=== PATIENT | male | born 1975 | race Caucasian/White ===

== ENCOUNTER 2017-03-19 00:37 | Emergency (ER) | payer OTHER ==
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
--- NOTE | 2017-03-19 02:04 | ED ORDER SUMMARY ---
..... Patient: NICOLLE DIXON OrderSheet [facility] VisitID: [id number] [address] [place] [address] 42y, M Registration Date/Time: 03/19/2017 ORDER SHEET Weight: 72.5 kg (stated) Allergies: No Known Drug Allergy GENERAL ORDERS: CBC w Diff Urgent (00:51 03/19/2017 Ozzy Griffin) (Ack 0:53 AMcQuoid ER Tech1) (0:55 KPage-Kuchan R.N.) CMP Urgent (00:51 03/19/2017 Ozzy Griffin) (Ack 0:53 AMcQuoid ER Tech1) (0:55 KPage-Kuchan R.N.) Irrigate Wounds (00:51 03/19/2017 Ozzy Griffin) (Ack 0:53 AMcQuoid ER Tech1) (0:55 KPage-Kuchan R.N.) - (02:05 03/19/2017 Ozzy Griffin) (2:55 CBradburn R.N.) MEDICATION ORDERS: - (xeroform gauze and wrap/cover) (02:04 03/19/2017 Ozzy Griffin) (2:55 CBradburn R.N.) IV FLUIDS: Dilaudid IV 1 mg (HIGH ALERT MEDICATION, NOW) (00:43 03/19/2017 KPage-Hubern R.N. verbal order read back to Ozzy Griffin) (0:44 KPage-Kuchan R.N.) IV NS : initial bolus 1000 mL (1000 mL/hr), then 1000 mL/hr for X1 (NOW) (00:44 03/19/2017 KPage-Kuelizabethn R.N. verbal order read back to Ozzy Griffin) (0:45 KPage-Kuchan R.N.) Dilaudid IV 2 mg (HIGH ALERT MEDICATION, NOW) (00:54 03/19/2017 KPage-Kuchan R.N. verbal order read back to Ozzy Griffin) (0:54 KPage-Hubern R.N.) IV Lactated Ringers : initial bolus none -, then 225 mL/hr for 8 hr (NOW) (00:55 03/19/2017 Ozzy Griffin) (2:57 Ronald Subramanian) IV Lactated Ringers : initial bolus none -, then 305 mL/hr for 8 hr (NOW) (00:55 03/19/2017 Ozzy Griffin) (1:10 Ronald Subramanian) Dilaudid IV 2 mg (HIGH ALERT MEDICATION, NOW) (01:01 03/19/2017 Brenda Subramanian verbal order read back to Ozzy Griffin) (1:02 Brenda Subramanian) Ativan IV 2 mg (HIGH ALERT MEDICATION, NOW) (01:10 03/19/2017 Ozzy Griffin) (1:11 Ronald Subramanian) ORDER SHEET NOTES: [Electronically signed by Vika Mcmahan R.N. (03:07 03/19/2017)] [Electronically signed by Dusty Alejo Dr. (08:19 03/19/2017)] [Electronically locked/signed by Vika Mcmahan R.N. (03:07 03/19/2017)]
--- NOTE | 2017-03-19 02:04 | ED ORDER SUMMARY ---
..... Patient: NICOLLE DIXON OrderSheet [facility] VisitID: [id number] [address] [place] [address] 42y, M Registration Date/Time: 03/19/2017 ORDER SHEET Weight: 72.5 kg (stated) Allergies: No Known Drug Allergy GENERAL ORDERS: CBC w Diff Urgent (00:51 03/19/2017 Ozzy Griffin) (Ack 0:53 AMcQuoid ER Tech1) (0:55 KPage-Kuchan R.N.) CMP Urgent (00:51 03/19/2017 Ozzy Griffin) (Ack 0:53 AMcQuoid ER Tech1) (0:55 KPage-Kuchan R.N.) Irrigate Wounds (00:51 03/19/2017 Ozzy Griffin) (Ack 0:53 AMcQuoid ER Tech1) (0:55 KPage-Kuchan R.N.) - (02:05 03/19/2017 Ozzy Griffin) (2:55 CBradburn R.N.) MEDICATION ORDERS: - (xeroform gauze and wrap/cover) (02:04 03/19/2017 Ozzy Griffin) (2:55 CBradburn R.N.) IV FLUIDS: Dilaudid IV 1 mg (HIGH ALERT MEDICATION, NOW) (00:43 03/19/2017 KPage-Hubern R.N. verbal order read back to Ozzy Griffin) (0:44 KPage-Kuchan R.N.) IV NS : initial bolus 1000 mL (1000 mL/hr), then 1000 mL/hr for X1 (NOW) (00:44 03/19/2017 KPage-Kuelizabethn R.N. verbal order read back to Ozzy Griffin) (0:45 KPage-Kuchan R.N.) Dilaudid IV 2 mg (HIGH ALERT MEDICATION, NOW) (00:54 03/19/2017 KPage-Kuchan R.N. verbal order read back to Ozzy Griffin) (0:54 KPage-Hubern R.N.) IV Lactated Ringers : initial bolus none -, then 225 mL/hr for 8 hr (NOW) (00:55 03/19/2017 Ozzy Griffin) (2:57 Ronald Subramanian) IV Lactated Ringers : initial bolus none -, then 305 mL/hr for 8 hr (NOW) (00:55 03/19/2017 Ozzy Griffin) (1:10 Ronald Subramanian) Dilaudid IV 2 mg (HIGH ALERT MEDICATION, NOW) (01:01 03/19/2017 Brenda Subramanian verbal order read back to Ozzy Griffin) (1:02 Brenda Subramanian) Ativan IV 2 mg (HIGH ALERT MEDICATION, NOW) (01:10 03/19/2017 Ozzy Griffin) (1:11 Ronald Subramanian) ORDER SHEET NOTES: [Electronically signed by Vika Mcmahan R.N. (03:07 03/19/2017)] [Electronically signed by Dusty Alejo Dr. (08:19 03/19/2017)] [Electronically locked/signed by Vika Mcmahan R.N. (03:07 03/19/2017)]
--- NOTE | 2017-03-19 08:19 | ED MAR SUMMARY ---
..... Medication Administration Record [facility] [address] [place] [address] Patient: NICOLLE DIXON Visit ID: [id number] 42y, M Weight: 72.5 kg Height/Length: 70 in BMI: 22.9 ALLERGIES: No Known Drug Allergy Given 00:39 03/19/2017 Asif Rodriguez R.N. Medication Administered: DILAUDID [IVP] (HYDROMORPHONE HCL PF), Dose: 1 mg IVP, Site: #1 right forearm. Medication Ordered: Dilaudid IV 1 mg (HIGH ALERT MEDICATION, NOW). Start 00:39 03/19/2017 Asif Rodriguez R.N., Stop 01:10 03/19/2017 Vika Mcmahan R.N. Medication Administered: IV NS (SALINE), Dose: IV Fluids, Rate: 1000 mL/hr, Dispensed: 1000 mL bag, Site: #1 right forearm. Medication Ordered: IV NS : initial bolus 1000 mL (1000 mL/hr), then 1000 mL/hr for X1 (NOW). Given 00:49 03/19/2017 Asif Rodriguez R.N. Medication Administered: DILAUDID [IVP] (HYDROMORPHONE HCL PF), Dose: 2 mg IVP, Site: #1 right forearm. Medication Ordered: Dilaudid IV 2 mg (HIGH ALERT MEDICATION, NOW). Given 01:02 03/19/2017 Asif Rodriguez R.N. Medication Administered: DILAUDID [IVP] (HYDROMORPHONE HCL PF), Dose: 2 mg IVP, Site: #1 right forearm. Medication Ordered: Dilaudid IV 2 mg (HIGH ALERT MEDICATION, NOW). Start 01:10 03/19/2017 Vika Mcmahan R.N., Continued Upon Transfer 02:55 03/19/2017 Vika Mcmahan R.N. Medication Administered: IV LACTATED RINGERS, Dose: IV Fluids over 8 hour(s), Rate: 305 mL/hr, Dispensed: 1000 mL bag, Site: #1 right forearm. Medication Ordered: IV Lactated Ringers : initial bolus none -, then 305 mL/hr for 8 hr (NOW). Given 01:11 03/19/2017 Vika Mcmahan R.N. Medication Administered: ATIVAN [IVP] (LORAZEPAM), Dose: 2 mg IVP over 2 minute(s), Site: #1 right forearm. Medication Ordered: Ativan IV 2 mg (HIGH ALERT MEDICATION, NOW). Given 02:45 03/19/2017 Vika Mcmahan R.N. Medication Administered: xeroform *, Dose: multiple * Topical. Medication Ordered: - (xeroform gauze and wrap/cover). Start 02:45 03/19/2017 Vika Mcmahan R.N., Continued Upon Transfer 02:55 03/19/2017 Vika Mcmahan R.N. Medication Administered: IV LACTATED RINGERS, Dose: IV Fluids over 8 hour(s), Rate: 225 mL/hr, Dispensed: 1000 mL bag, Site: #1 right forearm. Medication Ordered: IV Lactated Ringers : initial bolus none -, then 225 mL/hr for 8 hr (NOW).
--- NOTE | 2017-03-19 08:19 | ED MED RECONCILIATION SUMMARY ---
Patient: NICOLLE DIXON Medication Reconciliation Report [facility] VisitID: [id number] [address] [place] [address] 42y, M Registration Date/Time: 03/19/2017 Weight: 72.5 kg Height/Length: 70 in. BMI: 22.9 ALLERGIES: No Known Drug Allergy The patient's Home Medications are listed below: NONE. The source(s) of the original Home Medication information: patient The following Medications were given to the patient in the Emergency Department: Dilaudid [IVP] IVP 1 mg, administered: 03/19/2017 12:39:00 AM IV NS IV Fluids bolus 0, then 1000 mL/hr, administered: 03/19/2017 12:39:00 AM Dilaudid [IVP] IVP 2 mg, administered: 03/19/2017 12:49:00 AM Dilaudid [IVP] IVP 2 mg, administered: 03/19/2017 1:02:00 AM IV LACTATED RINGERS IV Fluids bolus 0, then 305 mL/hr, administered: 03/19/2017 1:10:00 AM Ativan [IVP] IVP 2 mg, administered: 03/19/2017 1:11:00 AM xeroform Topical multiple, administered: 03/19/2017 2:45:00 AM IV LACTATED RINGERS IV Fluids bolus 0, then 225 mL/hr, administered: 03/19/2017 2:45:00 AM The following Medications were prescribed to the patient: None.
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
--- NOTE | 2017-03-19 08:19 | ED MAR SUMMARY ---
..... Medication Administration Record [facility] [address] [place] [address] Patient: NICOLLE DIXON Visit ID: [id number] 42y, M Weight: 72.5 kg Height/Length: 70 in BMI: 22.9 ALLERGIES: No Known Drug Allergy Given 00:39 03/19/2017 Asif Rodriguez R.N. Medication Administered: DILAUDID [IVP] (HYDROMORPHONE HCL PF), Dose: 1 mg IVP, Site: #1 right forearm. Medication Ordered: Dilaudid IV 1 mg (HIGH ALERT MEDICATION, NOW). Start 00:39 03/19/2017 Asif Rodriguez R.N., Stop 01:10 03/19/2017 Vika Mcmahan R.N. Medication Administered: IV NS (SALINE), Dose: IV Fluids, Rate: 1000 mL/hr, Dispensed: 1000 mL bag, Site: #1 right forearm. Medication Ordered: IV NS : initial bolus 1000 mL (1000 mL/hr), then 1000 mL/hr for X1 (NOW). Given 00:49 03/19/2017 Asif Rodriguez R.N. Medication Administered: DILAUDID [IVP] (HYDROMORPHONE HCL PF), Dose: 2 mg IVP, Site: #1 right forearm. Medication Ordered: Dilaudid IV 2 mg (HIGH ALERT MEDICATION, NOW). Given 01:02 03/19/2017 Asif Rodriguez R.N. Medication Administered: DILAUDID [IVP] (HYDROMORPHONE HCL PF), Dose: 2 mg IVP, Site: #1 right forearm. Medication Ordered: Dilaudid IV 2 mg (HIGH ALERT MEDICATION, NOW). Start 01:10 03/19/2017 Vika Mcmahan R.N., Continued Upon Transfer 02:55 03/19/2017 Vika Mcmahan R.N. Medication Administered: IV LACTATED RINGERS, Dose: IV Fluids over 8 hour(s), Rate: 305 mL/hr, Dispensed: 1000 mL bag, Site: #1 right forearm. Medication Ordered: IV Lactated Ringers : initial bolus none -, then 305 mL/hr for 8 hr (NOW). Given 01:11 03/19/2017 Vika Mcmahan R.N. Medication Administered: ATIVAN [IVP] (LORAZEPAM), Dose: 2 mg IVP over 2 minute(s), Site: #1 right forearm. Medication Ordered: Ativan IV 2 mg (HIGH ALERT MEDICATION, NOW). Given 02:45 03/19/2017 Vika Mcmahan R.N. Medication Administered: xeroform *, Dose: multiple * Topical. Medication Ordered: - (xeroform gauze and wrap/cover). Start 02:45 03/19/2017 Vika Mcmahan R.N., Continued Upon Transfer 02:55 03/19/2017 Vika Mcmahan R.N. Medication Administered: IV LACTATED RINGERS, Dose: IV Fluids over 8 hour(s), Rate: 225 mL/hr, Dispensed: 1000 mL bag, Site: #1 right forearm. Medication Ordered: IV Lactated Ringers : initial bolus none -, then 225 mL/hr for 8 hr (NOW).
--- NOTE | 2017-03-19 08:19 | ED MED RECONCILIATION SUMMARY ---
Patient: NICOLLE DIXON Medication Reconciliation Report [facility] VisitID: [id number] [address] [place] [address] 42y, M Registration Date/Time: 03/19/2017 Weight: 72.5 kg Height/Length: 70 in. BMI: 22.9 ALLERGIES: No Known Drug Allergy The patient's Home Medications are listed below: NONE. The source(s) of the original Home Medication information: patient The following Medications were given to the patient in the Emergency Department: Dilaudid [IVP] IVP 1 mg, administered: 03/19/2017 12:39:00 AM IV NS IV Fluids bolus 0, then 1000 mL/hr, administered: 03/19/2017 12:39:00 AM Dilaudid [IVP] IVP 2 mg, administered: 03/19/2017 12:49:00 AM Dilaudid [IVP] IVP 2 mg, administered: 03/19/2017 1:02:00 AM IV LACTATED RINGERS IV Fluids bolus 0, then 305 mL/hr, administered: 03/19/2017 1:10:00 AM Ativan [IVP] IVP 2 mg, administered: 03/19/2017 1:11:00 AM xeroform Topical multiple, administered: 03/19/2017 2:45:00 AM IV LACTATED RINGERS IV Fluids bolus 0, then 225 mL/hr, administered: 03/19/2017 2:45:00 AM The following Medications were prescribed to the patient: None.
== END 2017-03-19 02:55 | disposition short-term general hospital (02) ==
LOC: ED SRH 00:37
DX: T21.22XA Burn of second degree of abdominal wall, initial encounter (principal); T21.26XA Burn of second degree of male genital region, initial encounter; T24.212A Burn of second degree of left thigh, initial encounter; T24.211A Burn of second degree of right thigh, initial encounter; X13.1XXA Other contact with steam and other hot vapors, initial encounter; T31.10 Burns involving 10-19% of body surface with 0% to 9% third degree burns; Y93.89 Activity, other specified; Y92.410 Unspecified street and highway as the place of occurrence of the external cause
CPT/HCPCS: 90100; 95059

== ENCOUNTER 2017-03-22 05:52 | Emergency (ER) | payer OTHER ==
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
--- NOTE | 2017-03-24 07:05 | ED MAR SUMMARY ---
..... Medication Administration Record [facility] [address] [place] [address] Patient: NICOLLE DIXON Visit ID: [id number] 42y, M Weight: 81.6 kg Height/Length: 70 in BMI: 25.8 ALLERGIES: No Known Drug Allergy
--- NOTE | 2017-03-24 07:05 | ED MED RECONCILIATION SUMMARY ---
Patient: NICOLLE DIXON Medication Reconciliation Report [facility] VisitID: [id number] [address] [place] [address] 42y, M Registration Date/Time: 03/22/2017 Weight: 81.6 kg Height/Length: 70 in. BMI: 25.8 ALLERGIES: No Known Drug Allergy The patient's Home Medications are listed below: CONTINUE TAKING THE FOLLOWING MEDICATIONS: Percocet Oral (5-325 mg) 1 tablet, 4x a day The source(s) of the original Home Medication information: Not obtained. The following Medications were given to the patient in the Emergency Department: None. The following Medications were prescribed to the patient: Percocet 5 mg/325 mg: take 1 tablet orally every 4 hours as needed for pain. Dispense thirty (30). No refill. Substitution is permissible. -- Dusty Alejo Dr.
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
--- NOTE | 2017-03-24 07:05 | ED MAR SUMMARY ---
..... Medication Administration Record [facility] [address] [place] [address] Patient: NICOLLE DIXON Visit ID: [id number] 42y, M Weight: 81.6 kg Height/Length: 70 in BMI: 25.8 ALLERGIES: No Known Drug Allergy
--- NOTE | 2017-03-24 07:05 | ED MED RECONCILIATION SUMMARY ---
Patient: NICOLLE DIXON Medication Reconciliation Report [facility] VisitID: [id number] [address] [place] [address] 42y, M Registration Date/Time: 03/22/2017 Weight: 81.6 kg Height/Length: 70 in. BMI: 25.8 ALLERGIES: No Known Drug Allergy The patient's Home Medications are listed below: CONTINUE TAKING THE FOLLOWING MEDICATIONS: Percocet Oral (5-325 mg) 1 tablet, 4x a day The source(s) of the original Home Medication information: Not obtained. The following Medications were given to the patient in the Emergency Department: None. The following Medications were prescribed to the patient: Percocet 5 mg/325 mg: take 1 tablet orally every 4 hours as needed for pain. Dispense thirty (30). No refill. Substitution is permissible. -- Dusty Alejo Dr.
== END 2017-03-22 06:19 | disposition home or self-care (01) ==
LOC: ED SRH 05:52
DX: T24.212A Burn of second degree of left thigh, initial encounter (principal); T21.22XA Burn of second degree of abdominal wall, initial encounter; T21.26XA Burn of second degree of male genital region, initial encounter; T24.211A Burn of second degree of right thigh, initial encounter; X13.1XXA Other contact with steam and other hot vapors, initial encounter